=== PATIENT | male | born 1980 | race Caucasian/White ===

== ENCOUNTER → 2017-01-24 | Outpatient (CLI) | payer OTHER ==
[~2017-01-24] MED LIST: AMOX875T PO; CALC500C3 PO; LBR25 PO; PROP10TA54 PO
[2017-01-24 17:34] LABS: BASO % 0.5 %; BASO ABS # 0.03 K/uL (0-0.2); COMPLETE YES; EOS % 1.4 %; HEMATOCRIT 35.7 % (42-52); IG% 0.4 %; LYMPH % 23.9 %; LYMPH ABS # 1.35 K/uL (1.2-3.4); MEAN CELL VOLUME 87.9 fL (80-100); MEAN CORPUSCULAR HEMOGLOBIN 29.8 pg (25-34); MEAN CORPUSCULAR HGB CONC 33.9 g/dl (32-36); MEAN PLATELET VOLUME 9.4 fL (7.4-10.4); MONO % 10.2 %; NEUT % 63.6 %; PLATELET COUNT 303 K/uL (130-400); RED BLOOD COUNT 4.06 M/uL (4.7-6.1); WHITE BLOOD COUNT 5.66 K/uL (4.8-10.8)
[2017-01-24 18:09] LABS: ALT/SGPT 19 U/L (12-78); AST/SGOT 11 U/L (15-37); BLOOD UREA NITROGEN 6 mg/dl (7-18); BUN/CREATININE RATIO 9.3 (10-20); CALCIUM 8.6 mg/dl (8.5-10.1); CARBON DIOXIDE 32 mmol/L (21-32); CHLORIDE 103 mmol/L (98-107); CREATININE 0.68 mg/dl (0.60-1.40); GLUCOSE 73 mg/dl (70-99); SODIUM 142 mmol/L (136-145)
[2017-01-24 18:12] LABS: ALKALINE PHOSPHATASE 56 U/L (45-117)
[2017-01-24 18:16] LABS: LYME DISEASE AB IGG NEG (NEG); LYME DISEASE AB IGM NEG (NEG)
[2017-01-29 19:59] LABS: ANAPLASMA PHAGOCYTOPHIL IGG <1:64 (<1:64); ANAPLASMA PHAGOCYTOPHIL IGM <1:20 (<1:20); EHRLICHIA CHAFF IGG AB <1:64 (<1:64); EHRLICHIA CHAFF IGM AB <1:20 (<1:20)
== END | disposition home or self-care (01) ==
LOC: C.LABBFT 10:09
PROVIDERS: ATTEND Nurse Practitioner
DX: R53.83 Other fatigue (principal); W57.XXXA Bitten or stung by nonvenomous insect and other nonvenomous arthropods, initial encounter

== ENCOUNTER → 2017-11-24 | Outpatient (CLI) | payer OTHER ==
--- NOTE | 2017-11-24 14:26 | DIAGNOSTIC IMAGING REPORT ---
PA CHEST WITH RIGHT-SIDED RIB SERIES CLINICAL HISTORY: Right-sided chest wall pain. FINDINGS: A PA chest radiograph with 4 additional views may right-sided rib series is compared to study dated 04/15/2013. The cardiomediastinal silhouette is unremarkable. The lungs and pleural spaces are clear. No pneumothorax is seen. No acute/distracted right-sided rib fracture is seen on the rib series. The remainder of the bony thorax is grossly intact. IMPRESSION: 1. The lungs are clear. 2. There is no radiographic evidence of right-sided rib fracture as clinically queried. Electronically signed by: Jose Luis Lynch M.D. 11/24/2017 2:25 PM Dictated Date/Time: 11/24/2017 2:21 PM
== END | disposition home or self-care (01) ==
LOC: C.RAD1850 14:07
PROVIDERS: ATTEND Internal Medicine
DX: R07.81 Pleurodynia (principal)